=== PATIENT | female | born 1985 ===

== ENCOUNTER 2018-07-06 05:13 | Emergency (ER) | payer OTHER ==
[2018-07-06 06:36] VITALS: BP 102/82
--- NOTE | 2018-07-06 06:40 | Cat Scan Report ---
PROCEDURE: CT HEAD/BRAIN WO CON TECHNIQUE: Routine axial imaging was obtained of the brain without IV contrast. HISTORY: head injury COMPARISONS: None FINDINGS: There is no evidence of acute stroke or hemorrhage. The ventricular system is appropriate in size and is symmetric. The visualized sinuses are clear. The mastoid air cells are well pneumatized. The calv arium appears intact. IMPRESSION: Within normal limits.. This document is electronically signed by John Shell MD., July 06 2018 06:37:18 AM ET
--- NOTE | 2018-07-06 06:42 | Cat Scan Report ---
PROCEDURE: CT CERVICAL SPINE WO CON TECHNIQUE: Magnetic resonance imaging of the cervical spine was performed using standard pulse seque nces without contrast material. HISTORY: head injury COMPARISONS: None . FINDINGS: Skull base and foramen magnum are intact. Cervical vertebrae are intact. C1-2: No significant abnormality . C2-3: No significant abnormality . C3-4: No significant abnormality . C4-5: No significant abnormality . C5-6: No significant abnormality . C6-7: No significant abnormality . C7-T1: No significant abnormality . Other: There are no fractures or malalignments. The soft tissues are unremarkable. . IMPRESSION: Normal Examination . This document is electronically signed by Kurt Gastelum MD., July 06 2018 06:39:56 AM ET
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
== END 2018-07-06 07:39 | disposition home or self-care (01) ==
LOC: ED 05:13
DX: S09.90XA Unspecified injury of head, initial encounter (principal); N94.10 Unspecified dyspareunia; F17.200 Nicotine dependence, unspecified, uncomplicated; Z98.51 Tubal ligation status; Y04.2XXA Assault by strike against or bumped into by another person, initial encounter; Y93.89 Activity, other specified; Y92.89 Other specified places as the place of occurrence of the external cause; Y99.8 Other external cause status
CPT/HCPCS: 70450; 72125; 87210; 87591